=== PATIENT | male | born 1995 | race Caucasian/White ===

== ENCOUNTER 2022-03-24 06:30 | Emergency (ER) | payer OTHER ==
[~2022-03-24] VITALS: Ht 180.3 cm; Wt 65.3 kg
== END 2022-03-24 07:35 | disposition home or self-care (01) ==
LOC: ED 06:30
DX: S29.011A Strain of muscle and tendon of front wall of thorax, initial encounter (principal); X50.0XXA Overexertion from strenuous movement or load, initial encounter; Y99.0 Civilian activity done for income or pay
CPT/HCPCS: 71101; 99283-25; A9270